=== PATIENT | female | born 1965 | race Caucasian/White ===

== ENCOUNTER 2017-12-22 12:21 | Emergency (ER) | payer SELFPAY ==
--- NOTE | 2017-12-22 13:30 | ER Document Report ---
ED Medical Screen (RME) - General Chief Complaint: Abdominal Pain Stated Complaint: ABDOMINAL PAIN Time Seen by Provider: 12/22/17 13:28 Mode of Arrival: Ambulatory Information source: Patient Notes: This is a 52-year-old female with a remote left mastectomy for breast cancer in 2000 who presents to the emergency room with acute onset of right flank pain radiating to the right lower quadrant. Patient is perimenopausal states she has had no recent vaginal bleeding. She denies any family history or personal history of kidney stones. She denies any history of gallstones. She did take Motrin at home and was given Zofran by EMS. Her nausea has improved. She states that the abdominal pain has improved. TRAVEL OUTSIDE OF THE [place] IN LAST 30 DAYS: No - Related Data Allergies/Adverse Reactions: cefazolin [From Ancef] Allergy (Verified 12/22/17 12:26) morphine Allergy (Verified 12/22/17 12:26) propofol [From Diprivan] Allergy (Verified 12/22/17 12:26) eggs Allergy (Uncoded 12/22/17 12:26) Physical Exam - Vital signs Vitals: Temp Pulse Resp BP Pulse Ox 98.1 F 72 20 117/67 98 12/22/17 12:30 12/22/17 12:30 12/22/17 12:30 12/22/17 12:30 12/22/17 12:30 Course - Vital Signs Vital signs: Temp Pulse Resp BP Pulse Ox 98.1 F 72 20 117/67 98 12/22/17 12:30 12/22/17 12:30 12/22/17 12:30 12/22/17 12:30 12/22/17 12:30
[2017-12-22 14:03] LABS: ABSOLUTE BASOPHILS # (AUTO) 0.1 10^3/uL (0.0-0.2); ABSOLUTE LYMPHOCYTES (AUTO) 1.3 10^3/uL (0.5-4.7); ABSOLUTE MONOCYTES (AUTO) 0.6 10^3/uL (0.1-1.4); ABSOLUTE NEUT (AUTO) 12.2 10^3/uL (1.7-8.2); BASOPHILS % (AUTO) 0.5 % (0-2); EOSINOPHILS % (AUTO) 0.2 % (0-6); HEMATOCRIT 40.6 % (36.0-47.0); HEMOGLOBIN 13.7 g/dL (12.0-15.5); LYMPHOCYTES % (AUTO) 9.2 % (13-45); MEAN CORPUSCULAR HEMOGLOBIN 30.3 pg (27.0-33.4); MEAN CORPUSCULAR HGB CONC 33.8 g/dL (32.0-36.0); MEAN CORPUSCULAR VOLUME 90 fl (80-97); MONOCYTES % (AUTO) 4.4 % (3-13); PLATELET COUNT 275 10^3/uL (150-450); RED BLOOD COUNT 4.53 10^6/uL (3.72-5.28); RED CELL DISTRIBUTION WIDTH 14.4 % (11.5-14.0); SEGMENTED NEUTROPHILS % (AUTO) 85.7 % (42-78); TOTAL CELLS COUNTED % (AUTO) 100 %; WHITE BLOOD COUNT 14.2 10^3/uL (4.0-10.5)
[2017-12-22 14:19] LABS: ALANINE AMINOTRANSFERASE 19 U/L (9-52); ALKALINE PHOSPHATASE 83 U/L (38-126); ANION GAP 9 (5-19); ASPARTATE AMINO TRANSFERASE 22 U/L (14-36); BILIRUBIN,DIRECT 0.3 mg/dL (0.0-0.4); BILIRUBIN,TOTAL 0.4 mg/dL (0.2-1.3); BLOOD UREA NITROGEN 14 mg/dL (7-20); CARBON DIOXIDE 23 mmol/L (22-30); CHLORIDE 109 mmol/L (98-107); GLUCOSE 104 mg/dL (75-110); POTASSIUM 4.5 mmol/L (3.6-5.0); SODIUM 141.2 mmol/L (137-145); TOTAL PROTEIN 6.8 g/dL (6.3-8.2)
[2017-12-22 14:32] LABS: APPEARANCE,URINE SLIGHTLY-CLOUDY; BILIRUBIN,URINE NEGATIVE (NEGATIVE); COLOR,URINE YELLOW; GLUCOSE, URINE NEGATIVE (NEGATIVE); KETONES,URINE TRACE mg/dL (NEGATIVE); LEUKOCYTE ESTERASE,URINE SMALL (NEGATIVE); NITRITE,URINE NEGATIVE (NEGATIVE); PROTEIN,URINE NEGATIVE (NEGATIVE); URINE SPECIFIC GRAVITY 1.028; UROBILINOGEN,URINE NEGATIVE mg/dL (<2.0)
[2017-12-22] MEDS ORDERED: CIPROFLOXACIN HCL 500 MG TABLET PO ONE (15:12)
--- NOTE | 2017-12-22 15:16 | ER Document Report ---
ED General - General Chief Complaint: Abdominal Pain Stated Complaint: ABDOMINAL PAIN Time Seen by Provider: 12/22/17 13:28 Mode of Arrival: Ambulatory Notes: 52-year-old female with prior history of breast CA, left radical mastectomy presents with complaint of right lower quadrant pain that started 6 hours prior to arrival. Patient reports an acute onset of right lower quadrant pain that she describes as sharp, stabbing with radiation down her right leg. Patient reports that she took Motrin for this pain prior to arrival. Upon arrival patient states she is currently pain-free. Last menstrual period was 2 weeks prior to arrival. She denies any recent illnesses. She denies any dysuria, hematuria, previous history of gallstones or kidney stones. She does report a history of ovarian cysts and states that this feels very similar. Patient did have associated nausea and vomiting. She denies any recent illnesses. TRAVEL OUTSIDE OF THE [place] IN LAST 30 DAYS: No - HPI Onset: Just prior to arrival Onset/Duration: Sudden, Gone Quality of pain: Stabbing, Throbbing Severity: Moderate Associated symptoms: Nausea Exacerbated by: Denies Relieved by: Denies Similar symptoms previously: Yes Recently seen / treated by doctor: No - Related Data Allergies/Adverse Reactions: cefazolin [From Ancef] Allergy (Verified 12/22/17 12:26) morphine Allergy (Verified 12/22/17 12:26) propofol [From Diprivan] Allergy (Verified 12/22/17 12:26) eggs Allergy (Uncoded 12/22/17 12:26) Past Medical History - General Information source: Patient - Social History Smoking Status: Former Smoker Chew tobacco use (# tins/day): No Frequency of alcohol use: None Drug Abuse: None Lives with: Family Family History: Reviewed & Not Pertinent Patient has suicidal ideation: No Patient has homicidal ideation: No Renal/ Medical History: Denies: Hx Peritoneal Dialysis Past Surgical History: Reports: Hx Mastectomy - left Review of Systems - Review of Systems Notes: REVIEW OF SYSTEMS: CONSTITUTIONAL : Denies fever, chills, or sweats. Denies recent illness. Denies weight loss, recent hospitalizations. EENT: Denies visula changes, eye pain. Denies nasal or sinus congestion or discharge. Denies sore throat, oral lesions, difficulty swallowing. CARDIOVASCULAR: Denies chest pain. Denies palpitations or racing or irregular heart beat. Denies lower extremity edema. RESPIRATORY: Denies cough, cold, or chest congestion. Denies shortness of breath, difficulty breathing, or wheezing. GASTROINTESTINAL: Denies abdominal distention. Denies nausea, vomiting, or diarrhea. Denies blood in vomitus, stools, or per rectum. Denies black, tarry stools. Denies constipation. GENITOURINARY: Denies difficulty urinating, painful urination, burning, frequency, blood in urine, or vaginal discharge. MUSCULOSKELETAL: Denies back or neck pain or stiffness. Denies joint pain or swelling. SKIN: Denies rash, lesions or sores. HEMATOLOGIC : Denies easy bruising or bleeding. LYMPHATIC: Denies swollen, enlarged glands. NEUROLOGICAL: Denies confusion or altered mental status. Denies passing out or loss of consciousness. Denies dizziness or lightheadedness. Denies headache. Denies weakness or paralysis or loss of use of either side. Denies problems with gait or speech. Denies sensory loss, numbness, or tingling. Denies seizures. PSYCHIATRIC: Denies anxiety or stress. Denies depression, suicidal ideation, or homicidal ideation. Physical Exam - Vital signs Vitals: Temp Pulse Resp BP Pulse Ox 98.1 F 72 20 117/67 98 12/22/17 12:30 12/22/17 12:30 12/22/17 12:30 12/22/17 12:30 12/22/17 12:30 - Notes Notes: PHYSICAL EXAMINATION: GENERAL: Well-appearing, well-nourished and in no acute distress. HEAD: Atraumatic, normocephalic. EYES: Pupils equal round and reactive to light, extraocular movements intact, conjunctiva are normal. ENT: Nares patent, oropharynx clear without exudates. Moist mucous membranes. NECK: Normal range of motion, supple without lymphadenopathy LUNGS: Breath sounds clear to auscultation bilaterally and equal. No wheezes rales or rhonchi. HEART: Regular rate and rhythm without murmurs ABDOMEN: Soft, tender to palpation in the right lower quadrant, nondistended abdomen. No guarding, no rebound. No masses appreciated. Female : deferred Musculoskeletal: Normal range of motion, no pitting or edema. No cyanosis. NEUROLOGICAL: Cranial nerves grossly intact. Normal speech, normal gait. Normal sensory, motor exams PSYCH: Normal mood, normal affect. SKIN: Warm, Dry, normal turgor, no rashes or lesions noted. Course - Re-evaluation Re-evalutation: Laboratory 12/22/17 12/22/17 12/22/17 13:40 13:40 13:45 WBC 14.2 H RBC 4.53 Hgb 13.7 Hct 40.6 MCV 90 MCH 30.3 MCHC 33.8 RDW 14.4 H Plt Count 275 Seg Neutrophils % 85.7 H Lymphocytes % 9.2 L Monocytes % 4.4 Eosinophils % 0.2 Basophils % 0.5 Absolute Neutrophils 12.2 H Absolute Lymphocytes 1.3 Absolute Monocytes 0.6 Absolute Eosinophils 0.0 Absolute Basophils 0.1 Sodium 141.2 Potassium 4.5 Chloride 109 H Carbon Dioxide 23 Anion Gap 9 BUN 14 Creatinine 0.75 Est GFR ( Amer) > 60 Est GFR (Non-Af Amer) > 60 Glucose 104 Calcium 10.0 Total Bilirubin 0.4 Direct Bilirubin 0.3 Neonat Total Bilirubin Not Reportable Neonat Direct Bilirubin Not Reportable Neonat Indirect Bili Not Reportable AST 22 ALT 19 Alkaline Phosphatase 83 Total Protein 6.8 Albumin 4.0 Beta HCG, Quant < 2.39 Total Beta HCG NEGATIVE Urine Color YELLOW Urine Appearance SLIGHTLY-CLOUDY Urine pH 5.0 Ur Specific [place] 1.028 Urine Protein NEGATIVE Urine Glucose (UA) NEGATIVE Urine Ketones TRACE H Urine Blood SMALL H Urine Nitrite NEGATIVE Urine Bilirubin NEGATIVE Urine Urobilinogen NEGATIVE Ur Leukocyte Esterase SMALL H Urine WBC (Auto) 5 Urine RBC (Auto) 2 U Hyaline Cast (Auto) 1 Urine Bacteria (Auto) 1+ Squamous Epi Cells Auto 2 Urine Mucus (Auto) MANY Urine Ascorbic Acid NEGATIVE Abdomen/Pelvis CT 12/22/17 15:11 IMPRESSION: COLONIC DIVERTICULOSIS. NO CT FINDINGS OF ACUTE DIVERTICULITIS. NO OTHER SIGNIFICANT OR ACUTE FINDING IN THE ABDOMEN OR PELVIS ON CT SCAN WITH IV CONTRAST. 12/22/17 15:15 52-year-old female with prior history of breast CA, left radical mastectomy presents with complaint of right lower quadrant pain that started 6 hours prior to arrival. Patient reports an acute onset of right lower quadrant pain that she describes as sharp, stabbing with radiation down her right leg. Patient reports that she took Motrin for this pain prior to arrival. Upon arrival patient states she is currently pain-free. Patient was seen by myself upon arrival. Vital signs were reviewed. Patient is afebrile, normotensive and not hypoxic. Patient does not appear toxic or dehydrated. They are in no acute distress. Previous medical records and nursing notes reviewed. Significant findings include include a physical exam significant for tenderness to palpation of the right lower quadrant. CBC is significant for a leukocytosis. CMP is without electrolyte abnormalities. Urinalysis is significant for leuk esterase and 5 WBCs. Patient reports no recurrence of pain during her ED course. CT of the abdomen and pelvis with IV contrast was obtained to assess for appendicitis. CT was significant for diverticulosis without diverticulitis or appendicitis. On reevaluation patient is still pain-free. She did receive Bactrim for urinary tract infection. Patient provided the opportunity to ask questions, and express concerns. Discharge instructions discussed. Patient is agreeable with discharge home. Return indications explained and discussed with the patient who displays understanding. Patient encouraged to return to the emergency department immediately with any concerns. 12/22/17 23:28 - Vital Signs Vital signs: Temp Pulse Resp BP Pulse Ox 98.4 F 60 18 122/90 H 100 12/22/17 16:45 12/22/17 16:45 12/22/17 16:45 12/22/17 16:45 12/22/17 16:45 - Laboratory Result Diagrams: 12/22/17 13:40 12/22/17 13:40 Laboratory results interpreted by me: 12/22/17 12/22/17 12/22/17 13:40 13:40 13:45 WBC 14.2 H RDW 14.4 H Seg Neutrophils % 85.7 H Lymphocytes % 9.2 L Absolute Neutrophils 12.2 H Chloride 109 H Urine Ketones TRACE H Urine Blood SMALL H Ur Leukocyte Esterase SMALL H - Diagnostic Test Radiology reviewed: Image reviewed Discharge - Discharge Clinical Impression: Right lower quadrant abdominal pain UTI (urinary tract infection) Qualifiers: Urinary tract infection type: site unspecified Hematuria presence: without hematuria Qualified Code(s): N39.0 - Urinary tract infection, site not specified Condition: Good Disposition: HOME, SELF-CARE Instructions: Abdominal Pain ([facility]), Observation for Appendicitis ([facility]), Urinary Tract Infection ([facility]) Additional Instructions: Follow up with your physician tomorrow for further care or return to the ED IMMEDIATELY if symptoms worsen or new concerns occur. If you cannot afford to follow up with your primary care physician a list of low cost clinics have been provided at the end of your discharge papers as well. Prescriptions: Ciprofloxacin HCl [Cipro 500 mg Tablet] 500 mg PO BID #10 tablet
--- NOTE | 2017-12-22 16:12 | RADIOLOGY REPORT (SQ) ---
EXAM DESCRIPTION: CT ABD/PELVIS WITH IV ONLY COMPLETED DATE/TIME: 12/22/2017 3:54 pm REASON FOR STUDY: rlq abd pain COMPARISON: None. TECHNIQUE: CT scan of the abdomen and pelvis performed using helical scanning technique with dynamic intravenous contrast injection. No oral contrast. Images reviewed with lung, soft tissue, and bone windows. Reconstructed coronal and sagittal MPR images reviewed. Delayed images for evaluation of the urinary system also acquired. All images stored on PACS. All CT scanners at this facility use dose modulation, iterative reconstruction, and/or weight based d osing when appropriate to reduce radiation dose to as low as reasonably achievable (ALARA). [facility]: Dose Right [facility]: CareDose [facility]: Dose Right [facility]: Teradose 4D [facility]: Farmol CONTRAST TYPE AND DOSE: contrast/concentration: Isovue 370.00 mg/ml; Total Contrast Delivered: 79.0 ml; Total Saline Delivered: 82.5 ml RENAL FUNCTION: BUN 14 creatinine 0.75. RADIATION DOSE: CT Rad equipment meets quality standard of care and radiation dose reduction techniq ues were employed. CTDIvol: 4.8 - 5.5 mGy. DLP: 517 mGy-cm.. LIMITATIONS: None. FINDINGS: LOWER CHEST: No significant findings. No nodules or infiltrates. LIVER: Normal size. No masses. No dilated ducts. SPLEEN: Normal size. No focal lesions. PANCREAS: No masses. No significant calcifications. No adjacent inflammation or peripancreatic fluid collections. Pancreatic duct not dilated. GALLBLADDER: No identified stones by CT criteria. No inflammatory changes to suggest cholecystitis. ADRENAL GLANDS: No significant masses or asymmetry. RIGHT KIDNEY AND URETER: No solid masses. No significant calcifications. No hydronephrosis or hyd roureter. LEFT KIDNEY AND URETER: No solid masses. No significant calcifications. No hydronephrosis or hydr oureter. AORTA AND VESSELS: No aneurysm. No dissection. Renal arteries, SMA, celiac without stenosis. RETROPERITONEUM: No retroperitoneal adenopathy, hemorrhage or masses. BOWEL AND PERITONEAL CAVITY: Numerous colonic diverticuli. No masses or inflammatory changes. No sanjay e fluid or peritoneal masses. APPENDIX: Normal. PELVIS: No mass. No free fluid. Normal bladder. ABDOMINAL WALL: No masses. No hernias. BONES: No significant or acute findings. OTHER: No other significant finding. IMPRESSION: COLONIC DIVERTICULOSIS. NO CT FINDINGS OF ACUTE DIVERTICULITIS. NO OTHER SIGNIFICANT O R ACUTE FINDING IN THE ABDOMEN OR PELVIS ON CT SCAN WITH IV CONTRAST. TECHNICAL DOCUMENTATION: JOB ID: [id number] Quality ID # [id number]: Final reports with documentation of one or more dose reduction techniques (e.g., Au tomated exposure control, adjustment of the mA and/or kV according to patient size, use of iterative reconstruction technique) 2010 [employer]- All Rights Reserved Reading location - IP/workstation name: [facility]
[2017-12-22 16:46] VITALS: BP 122/90
== END 2017-12-22 16:46 | disposition home or self-care (01) ==
LOC: ER 12:21
DX: N39.0 Urinary tract infection, site not specified (principal); R10.31 Right lower quadrant pain; R11.2 Nausea with vomiting, unspecified; Z85.3 Personal history of malignant neoplasm of breast; Z88.6 Allergy status to analgesic agent; Z91.012 Allergy to eggs; Z87.891 Personal history of nicotine dependence
CPT/HCPCS: 36415; 74177; 80053; 81001; 84702; 85025; 99284

== ENCOUNTER 2020-03-30 23:31 | Emergency (ER) | payer BC ==
[2020-03-31] MEDS ORDERED: NORMAL SALINE 1000 ML 1,000 ML IV ONE (00:20)
[2020-03-31] MEDS ORDERED: METOCLOPRAMIDE HCL INJ/PF 10 MG/2 ML SDV IV ONE (00:21)
[2020-03-31] MEDS ORDERED: KETOROLAC TROMETHAMINE INJ/PF 30 MG/1 ML SDV IV ONE (00:21)
--- NOTE | 2020-03-31 00:24 | ER Document Report ---
ED Medical Screen (RME) - General Stated Complaint: FEVER/CHILLS/VOMITING/NAUSEA/DIARRHEA Time Seen by Provider: 03/31/20 00:17 Notes: HPI: 54-year-old female presenting for evaluation of sudden onset of periumbilical pain with multiple episodes of vomiting today. Patient states symptoms began after she ate a corn dog which she believes had egg mixed in with the wrapping. Patient states she gets reactions like this when she eats any type of egg substance. Patient states she has been seen for similar reactions like this in the past states she normally does well with Phenergan IV as well as Toradol and some other pain medication she cannot recall. She states she has a sensitivity or allergy to morphine. Patient has not had fever or recent illness felt fine up until eating the corn dog. PHYSICAL EXAMINATION: Patient appears slightly pale she is actively vomiting in the emergency department with moderate tenderness to the mid abdomen on palpation limited by positioning in triage. Patient's vital signs are not significantly abnormal initially. I did review patient's records she has a prior history of diverticulosis on CT imaging from previous visits. She has had leukocytosis in the past with these visits. It appears she has been given Phenergan and Reglan Toradol or fentanyl on previous visits. I have greeted and performed a rapid initial assessment of this patient. A comprehensive ED assessment and evaluation of the patient, analysis of test results and completion of medical decision making process will be conducted by an additional ED providers. TRAVEL OUTSIDE OF THE [place] IN LAST 30 DAYS: No - Related Data Allergies/Adverse Reactions: cefazolin [From Ancef] Allergy (Verified 01/28/19 08:02) morphine Allergy (Verified 01/28/19 08:02) propofol [From Diprivan] Allergy (Verified 01/28/19 08:02) eggs Allergy (Uncoded 01/28/19 08:02) Past Medical History Renal/ Medical History: Reports: Hx Ovarian Cysts. Denies: Hx Peritoneal Dialysis Malignancy Medical History: Reports: Hx Breast Cancer Past Surgical History: Reports: Hx Mastectomy - left Physical Exam - Vital signs Vitals: Temp Pulse Resp BP Pulse Ox 97.4 F 84 20 139/90 H 100 03/31/20 00:07 03/31/20 00:07 03/31/20 00:07 03/31/20 00:07 09/13/20 00:07 Course - Vital Signs Vital signs: Temp Pulse Resp BP Pulse Ox 97.4 F 84 20 139/90 H 100 03/31/20 00:07 03/31/20 00:07 03/31/20 00:07 03/31/20 00:07 03/31/20 00:07
[2020-03-31] MEDS ORDERED: PROMETHAZINE HCL INJ 25 MG/1 ML VIAL IM ONE (00:29)
[2020-03-31] MEDS ORDERED: KETOROLAC TROMETHAMINE 60 MG/2 ML SDV IM ONE (00:29)
[2020-03-31 00:44] LABS: ABSOLUTE BASOPHILS # (AUTO) 0.1 10^3/uL (0.0-0.2); ABSOLUTE LYMPHOCYTES (AUTO) 1.5 10^3/uL (0.5-4.7); ABSOLUTE MONOCYTES (AUTO) 0.6 10^3/uL (0.1-1.4); ABSOLUTE NEUT (AUTO) 11.7 10^3/uL (1.7-8.2); BASOPHILS % (AUTO) 0.4 % (0-2); EOSINOPHILS % (AUTO) 0.2 % (0-6); HEMOGLOBIN 13.9 g/dL (12.0-15.5); MEAN CORPUSCULAR HEMOGLOBIN 31.8 pg (27.0-33.4); MEAN CORPUSCULAR HGB CONC 33.9 g/dL (32.0-36.0); MEAN CORPUSCULAR VOLUME 94 fl (80-97); MONOCYTES % (AUTO) 4.2 % (3-13); PLATELET COUNT 310 10^3/uL (150-450); RED BLOOD COUNT 4.36 10^6/uL (3.72-5.28); SEGMENTED NEUTROPHILS % (AUTO) 84.2 % (42-78); TOTAL CELLS COUNTED % (AUTO) 100 %; WHITE BLOOD COUNT 13.8 10^3/uL (4.0-10.5)
[2020-03-31 01:56] LABS: APPEARANCE,URINE CLEAR; BILIRUBIN,URINE NEGATIVE (NEGATIVE); COLOR,URINE YELLOW; GLUCOSE, URINE 150 mg/dL (NEGATIVE); KETONES,URINE 20 mg/dL (NEGATIVE); LEUKOCYTE ESTERASE,URINE NEGATIVE (NEGATIVE); NITRITE,URINE NEGATIVE (NEGATIVE); PROTEIN,URINE NEGATIVE (NEGATIVE); UROBILINOGEN,URINE NEGATIVE mg/dL (<2.0)
[2020-03-31 01:58] LABS: ALBUMIN 4.6 g/dL (3.5-5.0); ALKALINE PHOSPHATASE 88 U/L (38-126); ANION GAP 11 (5-19); ASPARTATE AMINO TRANSFERASE 29 U/L (14-36); BILIRUBIN,DIRECT 0.3 mg/dL (0.0-0.4); BILIRUBIN,TOTAL 0.6 mg/dL (0.2-1.3); BLOOD UREA NITROGEN 11 mg/dL (7-20); CALCIUM 9.8 mg/dL (8.4-10.2); CARBON DIOXIDE 19 mmol/L (22-30); CHLORIDE 106 mmol/L (98-107); GLUCOSE 179 mg/dL (75-110); POTASSIUM 3.9 mmol/L (3.6-5.0); TOTAL PROTEIN 7.4 g/dL (6.3-8.2)
[2020-03-31] MEDS ORDERED: ONDANSETRON HCL INJ/PF 4 MG/2 ML SDV IV ONE (02:02)
[2020-03-31] MEDS ORDERED: PROMETHAZINE HCL INJ 25 MG/1 ML VIAL IV ONE (02:53)
--- NOTE | 2020-03-31 02:56 | ER Document Report ---
ED GI/ - General Chief Complaint: Nausea/Vomiting Stated Complaint: FEVER/CHILLS/VOMITING/NAUSEA/DIARRHEA Time Seen by Provider: 03/31/20 00:17 Primary Care Provider: VENTURA STACY MD [ACTIVE STAFF] - Follow up as needed Mode of Arrival: Ambulatory Information source: Patient Notes: 54-year-old female past medical history significant for breast cancer presents to the emergency room complaining of vomiting that started around 5 PM and diarrhea that started around 7 PM with sharp stabbing abdominal pain. Patient states it started after eating a corn dog which she found out had eggs in the crust. Patient has an allergy to eggs and states whenever she eats eggs unknowingly she will develop nausea, vomiting, diarrhea and abdominal pain. She denies any fevers. She denies any recent travel. She denies any COVID-19 exposure. TRAVEL OUTSIDE OF THE [place] IN LAST 30 DAYS: No - Related Data Allergies/Adverse Reactions: cefazolin [From Ancef] Allergy (Verified 03/31/20 00:39) morphine Allergy (Verified 03/31/20 00:39) propofol [From Diprivan] Allergy (Verified 03/31/20 00:39) eggs Allergy (Uncoded 03/31/20 00:39) Past Medical History - General Information source: Patient - Social History Smoking Status: Never Smoker Frequency of alcohol use: Social Drug Abuse: None Family History: Malignancy Patient has homicidal ideation: No Renal/ Medical History: Reports: Hx Ovarian Cysts. Denies: Hx Peritoneal Dialysis Malignancy Medical History: Reports: Hx Breast Cancer GI Medical History: Reports: Hx Gastroesophageal Reflux Disease Past Surgical History: Reports: Hx Mastectomy - left radical Review of Systems - Review of Systems Constitutional: No symptoms reported EENT: No symptoms reported Cardiovascular: No symptoms reported Respiratory: No symptoms reported Gastrointestinal: Abdominal pain, Diarrhea, Nausea, Vomiting Genitourinary: No symptoms reported Musculoskeletal: No symptoms reported Skin: No symptoms reported Hematologic/Lymphatic: No symptoms reported Neurological/Psychological: No symptoms reported -: Yes All other systems reviewed and negative Physical Exam - Vital signs Vitals: Temp Pulse Resp BP Pulse Ox 97.4 F 84 20 139/90 H 100 03/31/20 00:07 03/31/20 00:07 03/31/20 00:07 03/31/20 00:07 09/13/20 00:07 - Notes Notes: VITAL SIGNS: Within normal limits. GENERAL: Mild acute distress, non-toxic appearance. HEAD: Normal with no signs of head trauma. EYES: PERRLA, EOMI, conjunctiva normal, no discharge. EARS: Hearing grossly intact. NOSE: Normal. THROAT: Oropharynx is normal. NECK: Normal range of motion, no tenderness, supple, no lymphadenopathy, No adenopathy, no JVD. CHEST: Clear breath sounds bilaterally. No wheezes, rales, or rhonchi. CARDIAC: Regular rate and rhythm. S1 and S2, without murmurs, gallops, or rubs. VASCULAR: No Edema. Peripheral pulses normal and equal in all extremities. ABDOMEN: Normal and soft with no tenderness, no masses or pulsatile masses. No organomegaly. Positive bowel sounds x4. No CVA tenderness noted bilaterally. GASTROINTESTINAL: Bowel sounds normal GENITOURINARY: Normal, No tenderness LYMPATHTIC: No lymphadenopathy noted. MUSCULOSKELETAL: Good range of motion of all major joints. Extremities without clubbing, cyanosis or edema. NEUROLOGICAL: Alert and oriented x 3. No focal sensory or strength deficits. Speech normal. Follows commands appropriately. PSYCHIATRIC: Normal Affect, judgement and mood. SKIN: Normal appearance with no rashes or lesions. Course - Re-evaluation Re-evalutation: 03/31/20 03:50 Patient is sleeping but easily arousable, she is pain-free on exam. Vomiting has resolved. She is able to tolerate p.o. fluids. Reviewed all lab and CAT scan results with patient. Discussed findings of diverticulosis along with jinny jean on her CAT scan. Counseled take medications as prescribed. Clear liquid diet for the next 24 hours. No drinking alcohol while taking Flagyl and for 24 hours after completing therapy. Outpatient follow-up with primary care physician if not improving in 2 to 3 days. On-call physician was provided. Patient was given strict return to the emergency room guidelines. Return for any new or worsening symptoms. All questions were answered. Patient verbalized understanding and agrees with plan of care. 03/31/20 04:03 - Vital Signs Vital signs: Temp Pulse Resp BP Pulse Ox 97.4 F 84 20 139/90 H 100 03/31/20 00:40 03/31/20 00:07 03/31/20 00:07 03/31/20 00:07 03/31/20 00:07 - Laboratory Result Diagrams: 03/31/20 00:29 03/31/20 00:29 Laboratory results interpreted by me: 03/31/20 03/31/20 03/31/20 00:29 00:29 01:00 WBC 13.8 H Lymph % (Auto) 11.0 L Absolute Neuts (auto) 11.7 H Seg Neutrophils % 84.2 H Sodium 135.7 L Carbon Dioxide 19 L Glucose 179 H Urine Glucose (UA) 150 H Urine Ketones 20 H Urine Blood MODERATE H - Diagnostic Test Radiology reviewed: Reports reviewed Discharge - Discharge Clinical Impression: Diverticulosis, Enteritis Nausea and vomiting Qualifiers: Vomiting type: unspecified Vomiting Intractability: non-intractable Qualified Code(s): R11.2 - Nausea with vomiting, unspecified Condition: Stable Disposition: HOME, SELF-CARE Instructions: Prescribed Antidiarrhea Medications ([facility]), Diarrhea, Nonspecific ([facility]), Gastroenteritis (adult) ([facility]), Vomiting ([facility]), Clear Liquid Diet ([facility]) Additional Instructions: Clear liquid diet for the next 24 hours. Medications as prescribed. No drinking alcohol while taking the Flagyl and for 24 hours after completing therapy. Outpatient follow-up primary care physician if not improving in 2 to 3 days. You have been provided with on-call physician. Return to the emergency room for any new or worsening symptoms. Prescriptions: Ciprofloxacin HCl [Cipro 500 mg Tablet] 500 mg PO BID 7 Days #14 tablet Metronidazole [Flagyl 500 mg Tablet] 500 mg PO Q6H #28 tablet Promethazine HCl [Phenergan 25 mg Tablet] 1 tab PO Q6H PRN #12 tablet PRN Reason: Referrals: VENTURA STACY MD [ACTIVE STAFF] - Follow up as needed
--- NOTE | 2020-03-31 03:21 | RADIOLOGY REPORT (SQ) ---
EXAM: CT Abdomen and Pelvis With Intravenous Contrast EXAM DATE/TIME: 03/31/2020 2:39 AM CLINICAL HISTORY: The patient is 54 years old and is Female; mid abd pain/diverticulosis hx TECHNIQUE: Axial computed tomography images of the abdomen and pelvis with intravenous contrast. Sagittal and coronal reformatted images were created and reviewed. This CT exam was performed using one or more of the following dose reduction techniques: automated exposure control, adjustment of the mA and/or kV according to patient size, and/or use of iterative reconstruction technique. COMPARISON: CT abdomen pelvis from 01/28/2019 FINDINGS: LUNG BASES: Unremarkable. No mass. No consolidation. ABDOMEN: LIVER: There is mild diffuse fatty infiltration of the liver. No obvious liver mass. GALLBLADDER AND BILE DUCTS: Unremarkable. No calcified stones. No significant biliary ductal dilatation. PANCREAS: Unremarkable. No ductal dilation. No obvious mass. SPLEEN: Unremarkable. No splenomegaly. ADRENALS: Calcifications within the right adrenal gland. No adrenal nodule or mass. KIDNEYS AND URETERS: Unremarkable. No solid mass. No hydronephrosis. STOMACH AND BOWEL: There is colonic diverticulosis without evidence of diverticulitis. There is mesenteric stranding adjacent to several small bowel loops in the lower abdomen. No significant bowel wall thickening appreciated. However, findings are suspicious for enteritis. PELVIS: APPENDIX: The appendix is unremarkable. BLADDER: Unremarkable. No obvious mass. REPRODUCTIVE: Unremarkable as visualized. ABDOMEN and PELVIS: INTRAPERITONEAL SPACE: Trace free fluid in the abdomen and pelvis. No abscess visualized. No free air. BONES/JOINTS: No acute fracture. No dislocation. SOFT TISSUES: Left breast implant in place, incompletely imaged. VASCULATURE: Atherosclerotic calcifications are noted. No aortic aneurysm. LYMPH NODES: No significant lymph node enlargement. IMPRESSION: 1. Mesenteric stranding adjacent to several small bowel loops in the lower abdomen. No significant bowel wall thickening appreciated. However, findings are suspicious for enteritis. 2. Trace free fluid in the abdomen and pelvis. No abscess visualized.
[2020-03-31] MEDS ORDERED: CIPROFLOXACIN HCL 500 MG TABLET PO ONE (03:49)
[2020-03-31] MEDS ORDERED: METRONIDAZOLE 500 MG TABLET PO ONE (03:49)
[2020-03-31 04:07] VITALS: BP 135/71
== END 2020-03-31 04:05 | disposition home or self-care (01) ==
LOC: ER 23:31
DX: K57.90 Diverticulosis of intestine, part unspecified, without perforation or abscess without bleeding (principal); K52.9 Noninfective gastroenteritis and colitis, unspecified; R11.2 Nausea with vomiting, unspecified; R50.9 Fever, unspecified
CPT/HCPCS: 99285; 96372; 96361; 96374; 36415; 83690; 84703; 85025; 80053; 81001; 74177; J1885; J2550; J2405; J7030